=== PATIENT | female | born 1930 | race African-American/Black ===

== ENCOUNTER 2017-10-26 12:30 | Outpatient (CLI) | payer MEDICARE, MEDICAID | END 2017-10-26 12:31 | disposition home or self-care (01) | LOC: BICRAD 12:30 | PROVIDERS: ATTEND Family Medicine | DX: C91.10 Chronic lymphocytic leukemia of B-cell type not having achieved remission (principal); M25.559 Pain in unspecified hip; R29.6 Repeated falls | CPT/HCPCS: 71046; 72170 ==

== ENCOUNTER 2017-11-01 14:04 | Day surgery (SDC) | payer MEDICARE, MEDICAID ==
[2017-11-01] MEDS ORDERED: Epoetin 40,000 UNITS/ML VIAL ONE (14:11)
[2017-11-01 14:17] VITALS: BP 169/70; TEMP 97.8
[2017-11-01] MEDS ORDERED: Epoetin 40,000 UNITS/ML VIAL SC SCH (14:30)
== END 2017-11-01 14:18 | disposition home or self-care (01) ==
LOC: ONC/OP 14:04
PROVIDERS: ATTEND Internal Medicine Medical Oncology
DX: N18.9 Chronic kidney disease, unspecified (principal); D63.1 Anemia in chronic kidney disease; Z88.5 Allergy status to narcotic agent; Z88.8 Allergy status to other drugs, medicaments and biological substances
CPT/HCPCS: 96372; J0885

== ENCOUNTER 2017-11-08 14:16 | Day surgery (SDC) | payer MEDICARE, MEDICAID ==
[2017-11-08 14:31] VITALS: BP 164/72; TEMP 97.8
[2017-11-08] MEDS ORDERED: Epoetin 40,000 UNITS/ML VIAL SC SCH (14:45)
== END 2017-11-08 16:10 | disposition home or self-care (01) ==
LOC: ONC/OP 14:16
PROVIDERS: ATTEND Internal Medicine Medical Oncology
DX: N18.9 Chronic kidney disease, unspecified (principal); D63.1 Anemia in chronic kidney disease; Z88.5 Allergy status to narcotic agent; Z88.8 Allergy status to other drugs, medicaments and biological substances; Z79.82 Long term (current) use of aspirin; Z79.899 Other long term (current) drug therapy
CPT/HCPCS: 96372; J0885

== ENCOUNTER 2017-11-16 12:02 | Day surgery (SDC) | payer MEDICARE, MEDICAID ==
[2017-11-16] MEDS ORDERED: Epoetin 40,000 UNITS/ML VIAL SC SCH (12:15)
[2017-11-16 12:17] VITALS: BP 190/84; TEMP 99.1
== END 2017-11-16 12:29 | disposition home or self-care (01) ==
LOC: ONC/OP 12:02
PROVIDERS: ATTEND Internal Medicine Medical Oncology
DX: I12.9 Hypertensive chronic kidney disease with stage 1 through stage 4 chronic kidney disease, or unspecified chronic kidney disease (principal); N18.9 Chronic kidney disease, unspecified; D63.1 Anemia in chronic kidney disease; E78.5 Hyperlipidemia, unspecified; Z88.5 Allergy status to narcotic agent; Z88.8 Allergy status to other drugs, medicaments and biological substances
CPT/HCPCS: 96372; J0885

== ENCOUNTER 2017-11-23 11:59 | Day surgery (SDC) | payer MEDICARE, MEDICAID ==
[2017-11-23] MEDS ORDERED: Epoetin 40,000 UNITS/ML VIAL ONE (12:08)
[2017-11-23 12:20] VITALS: BP 196/81; TEMP 98.1
== END 2017-11-23 12:15 | disposition home or self-care (01) ==
LOC: ONC/OP 11:59
PROVIDERS: ATTEND Internal Medicine Medical Oncology
DX: I12.9 Hypertensive chronic kidney disease with stage 1 through stage 4 chronic kidney disease, or unspecified chronic kidney disease (principal); N18.9 Chronic kidney disease, unspecified; D63.1 Anemia in chronic kidney disease; E78.5 Hyperlipidemia, unspecified; Z88.5 Allergy status to narcotic agent; Z88.8 Allergy status to other drugs, medicaments and biological substances; Z79.82 Long term (current) use of aspirin; Z79.899 Other long term (current) drug therapy
CPT/HCPCS: 96372; J0885

== ENCOUNTER 2018-01-02 13:51 | Day surgery (SDC) | payer MEDICARE, MEDICAID ==
[2018-01-02] MEDS ORDERED: Epoetin 40,000 UNITS/ML VIAL ONE (13:59)
[2018-01-02] MEDS ORDERED: Epoetin 40,000 UNITS/ML VIAL SC SCH (14:00)
[2018-01-02 14:51] VITALS: BP 182/77; TEMP 98.5
== END 2018-01-02 14:51 | disposition home or self-care (01) ==
LOC: ONC/OP 13:51
PROVIDERS: ATTEND Internal Medicine Medical Oncology
DX: I12.9 Hypertensive chronic kidney disease with stage 1 through stage 4 chronic kidney disease, or unspecified chronic kidney disease (principal); N18.9 Chronic kidney disease, unspecified; D63.1 Anemia in chronic kidney disease; D50.9 Iron deficiency anemia, unspecified; C91.10 Chronic lymphocytic leukemia of B-cell type not having achieved remission; E78.5 Hyperlipidemia, unspecified; F41.9 Anxiety disorder, unspecified; M19.90 Unspecified osteoarthritis, unspecified site; Z79.82 Long term (current) use of aspirin; Z79.899 Other long term (current) drug therapy; Z88.5 Allergy status to narcotic agent; Z88.8 Allergy status to other drugs, medicaments and biological substances
CPT/HCPCS: 96372; J0885

== ENCOUNTER 2018-01-16 14:07 | Day surgery (SDC) | payer MEDICARE, MEDICAID ==
[2018-01-16] MEDS ORDERED: Epoetin 40,000 UNITS/ML VIAL SC SCH (14:30)
[2018-01-16 16:16] VITALS: BP 144/66; TEMP 98.6
== END 2018-01-16 16:16 | disposition home or self-care (01) ==
LOC: ONC/OP 14:07
PROVIDERS: ATTEND Internal Medicine Medical Oncology
DX: I12.9 Hypertensive chronic kidney disease with stage 1 through stage 4 chronic kidney disease, or unspecified chronic kidney disease (principal); N18.9 Chronic kidney disease, unspecified; C91.10 Chronic lymphocytic leukemia of B-cell type not having achieved remission; D63.1 Anemia in chronic kidney disease; D50.9 Iron deficiency anemia, unspecified; E78.5 Hyperlipidemia, unspecified; Z79.82 Long term (current) use of aspirin; Z79.899 Other long term (current) drug therapy; Z91.19 Patient's noncompliance with other medical treatment and regimen
CPT/HCPCS: 96372; J0885

== ENCOUNTER 2018-01-29 14:03 | Day surgery (SDC) | payer MEDICARE, MEDICAID ==
[2018-01-29] MEDS ORDERED: Epoetin 40,000 UNITS/ML VIAL SC SCH (14:15)
[2018-01-29 14:19] VITALS: BP 153/70; TEMP 98.6
== END 2018-01-29 14:41 | disposition home or self-care (01) ==
LOC: ONC/OP 14:03
PROVIDERS: ATTEND Internal Medicine Medical Oncology
DX: I12.9 Hypertensive chronic kidney disease with stage 1 through stage 4 chronic kidney disease, or unspecified chronic kidney disease (principal); N18.9 Chronic kidney disease, unspecified; D63.1 Anemia in chronic kidney disease; C91.10 Chronic lymphocytic leukemia of B-cell type not having achieved remission; E78.5 Hyperlipidemia, unspecified; Z88.5 Allergy status to narcotic agent; Z88.8 Allergy status to other drugs, medicaments and biological substances; Z98.890 Other specified postprocedural states
CPT/HCPCS: 96372; J0885

== ENCOUNTER 2018-02-22 11:15 | Day surgery (SDC) | payer MEDICARE, MEDICAID ==
[2018-02-22] MEDS ORDERED: Epoetin 40,000 UNITS/ML VIAL SC SCH (11:30)
== END 2018-02-22 11:59 | disposition home or self-care (01) ==
LOC: ONC/OP 11:15
PROVIDERS: ATTEND Internal Medicine Medical Oncology
DX: N18.9 Chronic kidney disease, unspecified (principal); D63.1 Anemia in chronic kidney disease; Z88.5 Allergy status to narcotic agent; Z88.8 Allergy status to other drugs, medicaments and biological substances
CPT/HCPCS: 96372; J0885

== ENCOUNTER 2018-03-08 11:19 | Day surgery (SDC) | payer MEDICARE, MEDICAID ==
[2018-03-08] MEDS ORDERED: Epoetin 40,000 UNITS/ML VIAL SC SCH (11:30)
== END 2018-03-08 12:10 | disposition home or self-care (01) ==
LOC: ONC/OP 11:19
PROVIDERS: ATTEND Internal Medicine Medical Oncology
DX: N18.9 Chronic kidney disease, unspecified (principal); D63.1 Anemia in chronic kidney disease; Z88.5 Allergy status to narcotic agent
CPT/HCPCS: 96372; J0885

== ENCOUNTER 2018-04-05 11:16 | Day surgery (SDC) | payer MEDICARE, MEDICAID ==
[2018-04-05] MEDS ORDERED: Epoetin 40,000 UNITS/ML VIAL SC SCH (11:45)
[2018-04-05 12:23] VITALS: BP 106/70; TEMP 97.7
== END 2018-04-05 11:40 | disposition home or self-care (01) ==
LOC: ONC/OP 11:16
PROVIDERS: ATTEND Internal Medicine Medical Oncology
DX: N18.9 Chronic kidney disease, unspecified (principal); D63.1 Anemia in chronic kidney disease; Z88.5 Allergy status to narcotic agent
CPT/HCPCS: 96372; J0885

== ENCOUNTER 2018-04-19 11:50 | Day surgery (SDC) | payer MEDICARE, MEDICAID ==
[2018-04-19] MEDS ORDERED: Epoetin 40,000 UNITS/ML VIAL SC SCH (12:15)
== END 2018-04-19 16:55 | disposition home or self-care (01) ==
LOC: ONC/OP 11:50
PROVIDERS: ATTEND Internal Medicine Medical Oncology
DX: N18.9 Chronic kidney disease, unspecified (principal); D63.1 Anemia in chronic kidney disease; Z88.5 Allergy status to narcotic agent
CPT/HCPCS: 96372; J0885

== ENCOUNTER 2018-05-24 11:27 | Day surgery (SDC) | payer MEDICARE, MEDICAID ==
[2018-05-24] MEDS ORDERED: Epoetin 40,000 UNITS/ML VIAL ONE (11:34)
[2018-05-24] MEDS ORDERED: Epoetin 40,000 UNITS/ML VIAL SC SCH (11:45)
== END 2018-05-24 12:40 | disposition home or self-care (01) ==
LOC: ONC/OP 11:27
PROVIDERS: ATTEND Nurse Practitioner Acute Care
DX: N18.9 Chronic kidney disease, unspecified (principal); D63.1 Anemia in chronic kidney disease; Z79.52 Long term (current) use of systemic steroids; Z79.82 Long term (current) use of aspirin; Z79.899 Other long term (current) drug therapy; Z88.5 Allergy status to narcotic agent; Z88.8 Allergy status to other drugs, medicaments and biological substances
CPT/HCPCS: 96372; J0885

== ENCOUNTER 2018-06-07 10:56 | Day surgery (SDC) | payer MEDICARE, MEDICAID ==
[2018-06-07] MEDS ORDERED: Epoetin 40,000 UNITS/ML VIAL ONE (11:05)
[2018-06-07] MEDS ORDERED: Epoetin 40,000 UNITS/ML VIAL SC SCH (11:15)
[2018-06-07 11:21] VITALS: BP 159/70; TEMP 98.2
== END 2018-06-07 11:21 | disposition home or self-care (01) ==
LOC: ONC/OP 10:56
PROVIDERS: ATTEND Nurse Practitioner Acute Care
DX: N18.9 Chronic kidney disease, unspecified (principal); D63.1 Anemia in chronic kidney disease; Z88.5 Allergy status to narcotic agent
CPT/HCPCS: 96372; J0885

== ENCOUNTER 2018-07-19 10:37 | Day surgery (SDC) | payer MEDICARE, MEDICAID ==
[2018-07-19] MEDS ORDERED: Epoetin 40,000 UNITS/ML VIAL ONE (11:00)
[2018-07-19] MEDS ORDERED: Epoetin 40,000 UNITS/ML VIAL SC SCH (11:15)
[2018-07-19 11:50] VITALS: BP 164/69; TEMP 98
== END 2018-07-19 11:51 | disposition home or self-care (01) ==
LOC: ONC/OP 10:37
PROVIDERS: ATTEND Internal Medicine Medical Oncology
DX: N18.9 Chronic kidney disease, unspecified (principal); D63.1 Anemia in chronic kidney disease; Z88.5 Allergy status to narcotic agent
CPT/HCPCS: 96372; J0885

== ENCOUNTER 2018-08-09 11:16 | Day surgery (SDC) | payer MEDICARE, MEDICAID ==
[2018-08-09] MEDS ORDERED: Epoetin 40,000 UNITS/ML VIAL SC SCH (12:00)
[2018-08-09 12:08] VITALS: BP 181/74; TEMP 97.6
== END 2018-08-09 12:08 | disposition home or self-care (01) ==
LOC: ONC/OP 11:16
PROVIDERS: ATTEND Internal Medicine Medical Oncology
DX: N18.9 Chronic kidney disease, unspecified (principal); D63.1 Anemia in chronic kidney disease; Z88.5 Allergy status to narcotic agent; Z88.8 Allergy status to other drugs, medicaments and biological substances; Z79.82 Long term (current) use of aspirin; Z79.899 Other long term (current) drug therapy
CPT/HCPCS: 96372; J0885

== ENCOUNTER 2018-08-23 11:41 | Day surgery (SDC) | payer MEDICARE, MEDICAID ==
[2018-08-23] MEDS ORDERED: Epoetin 40,000 UNITS/ML VIAL SC SCH (12:00)
== END 2018-08-23 12:05 | disposition home or self-care (01) ==
LOC: ONC/OP 11:41
PROVIDERS: ATTEND Internal Medicine Medical Oncology
PROC: 3E033GC Introduction of Other Therapeutic Substance into Peripheral Vein, Percutaneous Approach (ICD-10-PCS; principal; 2018-08-23)
DX: N18.9 Chronic kidney disease, unspecified (principal); D63.1 Anemia in chronic kidney disease; Z88.5 Allergy status to narcotic agent; Z88.8 Allergy status to other drugs, medicaments and biological substances; Z79.52 Long term (current) use of systemic steroids; Z79.82 Long term (current) use of aspirin; Z79.899 Other long term (current) drug therapy
CPT/HCPCS: 96372; J0885

== ENCOUNTER 2018-09-27 11:13 | Day surgery (SDC) | payer MEDICARE, MEDICAID ==
[2018-09-27] MEDS ORDERED: Epoetin 40,000 UNITS/ML VIAL ONE (11:18)
[2018-09-27 11:21] VITALS: BP 181/76; TEMP 98.3
[2018-09-27] MEDS ORDERED: Epoetin 40,000 UNITS/ML VIAL SC SCH (11:30)
== END 2018-09-27 11:29 | disposition home or self-care (01) ==
LOC: ONC/OP 11:13
PROVIDERS: ATTEND Internal Medicine Hematology & Oncology
DX: N18.9 Chronic kidney disease, unspecified (principal); D63.1 Anemia in chronic kidney disease; Z79.82 Long term (current) use of aspirin; Z79.899 Other long term (current) drug therapy; Z88.5 Allergy status to narcotic agent; Z88.8 Allergy status to other drugs, medicaments and biological substances
CPT/HCPCS: 96372; J0885

== ENCOUNTER → 2018-10-25 | Day surgery (SDC) | payer MEDICARE, MEDICAID ==
[~2018-10-25] MED LIST: Epoetin 40,000 UNITS/ML VIAL ONE; Epoetin 40,000 UNITS/ML VIAL SC SCH
== END ==
LOC: ONC/OP 11:16
PROVIDERS: ATTEND Internal Medicine Hematology & Oncology
DX: I12.9 Hypertensive chronic kidney disease with stage 1 through stage 4 chronic kidney disease, or unspecified chronic kidney disease (principal); N18.9 Chronic kidney disease, unspecified; D63.1 Anemia in chronic kidney disease; C91.10 Chronic lymphocytic leukemia of B-cell type not having achieved remission; F41.9 Anxiety disorder, unspecified; M19.90 Unspecified osteoarthritis, unspecified site; Z88.5 Allergy status to narcotic agent; Z88.8 Allergy status to other drugs, medicaments and biological substances; Z79.82 Long term (current) use of aspirin; Z79.899 Other long term (current) drug therapy
CPT/HCPCS: 96372; J0885

== ENCOUNTER 2018-11-08 12:55 | Day surgery (SDC) | payer MEDICARE, MEDICAID ==
[2018-11-08 13:02] VITALS: TEMP 98.7
[2018-11-08] MEDS ORDERED: Epoetin 40,000 UNITS/ML VIAL SC SCH (13:15)
== END 2018-11-08 13:08 | disposition home or self-care (01) ==
LOC: ONC/OP 12:55
PROVIDERS: ATTEND Internal Medicine Hematology & Oncology
DX: N18.9 Chronic kidney disease, unspecified (principal); D63.1 Anemia in chronic kidney disease; Z88.5 Allergy status to narcotic agent; Z88.8 Allergy status to other drugs, medicaments and biological substances
CPT/HCPCS: 96372; J0885

== ENCOUNTER 2018-12-06 11:18 | Day surgery (SDC) | payer MEDICARE, MEDICAID ==
[2018-12-06] MEDS ORDERED: Epoetin 40,000 UNITS/ML VIAL SC SCH (11:30)
[2018-12-06 11:31] VITALS: BP 148/67; TEMP 98.6
== END 2018-12-06 12:54 | disposition home or self-care (01) ==
LOC: ONC/OP 11:18
PROVIDERS: ATTEND Internal Medicine Hematology & Oncology
DX: N18.9 Chronic kidney disease, unspecified (principal); D63.1 Anemia in chronic kidney disease; Z88.5 Allergy status to narcotic agent; Z88.8 Allergy status to other drugs, medicaments and biological substances; Z79.52 Long term (current) use of systemic steroids; Z79.82 Long term (current) use of aspirin; Z79.899 Other long term (current) drug therapy
CPT/HCPCS: 96372; J0885

== ENCOUNTER 2018-12-27 11:09 | Day surgery (SDC) | payer MEDICARE, MEDICAID ==
[2018-12-27] MEDS ORDERED: Epoetin 40,000 UNITS/ML VIAL ONE (11:15)
[2018-12-27] MEDS ORDERED: EPOETIN ALFA-EPBX (NON-ESRD) 40,000 UNIT/ML VIAL SC SCH (11:15)
[2018-12-27 12:02] VITALS: BP 122/65; TEMP 98.4
== END 2018-12-27 12:02 | disposition home or self-care (01) ==
LOC: ONC/OP 11:09
PROVIDERS: ATTEND Internal Medicine Hematology & Oncology
DX: N18.9 Chronic kidney disease, unspecified (principal); D63.1 Anemia in chronic kidney disease; Z88.5 Allergy status to narcotic agent; Z88.8 Allergy status to other drugs, medicaments and biological substances
CPT/HCPCS: 96372; J0885; Q5106

== ENCOUNTER 2019-01-17 11:06 | Day surgery (SDC) | payer MEDICARE, MEDICAID ==
[2019-01-17] MEDS ORDERED: Epoetin 40,000 UNITS/ML VIAL ONE (11:12)
[2019-01-17 11:26] VITALS: BP 140/101; TEMP 97.3
[2019-01-17] MEDS ORDERED: EPOETIN ALFA-EPBX (ESRD) 40,000 UNIT/ML VIAL SC SCH (11:30)
== END 2019-01-17 16:44 | disposition home or self-care (01) ==
LOC: ONC/OP 11:06
PROVIDERS: ATTEND Internal Medicine Hematology & Oncology
DX: N18.9 Chronic kidney disease, unspecified (principal); D63.1 Anemia in chronic kidney disease; Z88.5 Allergy status to narcotic agent
CPT/HCPCS: 96372; J0885

== ENCOUNTER 2019-02-07 10:42 | Day surgery (SDC) | payer MEDICARE, MEDICAID ==
[2019-02-07] MEDS ORDERED: EPOETIN ALFA-EPBX (NON-ESRD) 40,000 UNIT/ML VIAL ONE (10:56)
[2019-02-07 11:04] VITALS: BP 168/70; TEMP 97.6
[2019-02-07] MEDS ORDERED: EPOETIN ALFA-EPBX (ESRD) 40,000 UNIT/ML VIAL SC SCH (11:45)
== END 2019-02-07 11:37 | disposition home or self-care (01) ==
LOC: ONC/OP 10:42
PROVIDERS: ATTEND Nurse Practitioner Acute Care
DX: N18.9 Chronic kidney disease, unspecified (principal); D63.1 Anemia in chronic kidney disease; Z88.5 Allergy status to narcotic agent; Z88.8 Allergy status to other drugs, medicaments and biological substances
CPT/HCPCS: 96372; Q5106

== ENCOUNTER 2019-03-21 11:55 | Day surgery (SDC) | payer MEDICARE, MEDICAID ==
[2019-03-21] MEDS ORDERED: EPOETIN ALFA-EPBX (ESRD) 40,000 UNIT/ML VIAL ONE (12:04)
[2019-03-21] MEDS ORDERED: EPOETIN ALFA-EPBX (ESRD) 40,000 UNIT/ML VIAL SC SCH (12:15)
[2019-03-21 12:57] VITALS: BP 209/87; TEMP 98.2
== END 2019-03-21 15:38 | disposition home or self-care (01) ==
LOC: ONC/OP 11:55
PROVIDERS: ATTEND Internal Medicine Medical Oncology
DX: N18.9 Chronic kidney disease, unspecified (principal); D63.1 Anemia in chronic kidney disease; Z88.5 Allergy status to narcotic agent; Z88.8 Allergy status to other drugs, medicaments and biological substances
CPT/HCPCS: 96372; Q5105

== ENCOUNTER 2019-05-02 11:14 | Day surgery (SDC) | payer MEDICARE, MEDICAID ==
[2019-05-02] MEDS ORDERED: EPOETIN ALFA-EPBX (ESRD) 40,000 UNIT/ML VIAL SC SCH (12:00)
[2019-05-02 12:40] VITALS: BP 180/70
== END 2019-05-02 12:42 | disposition home or self-care (01) ==
LOC: ONC/OP 11:14
PROVIDERS: ATTEND Internal Medicine Medical Oncology
DX: N18.9 Chronic kidney disease, unspecified (principal); D63.1 Anemia in chronic kidney disease; Z88.5 Allergy status to narcotic agent; Z88.8 Allergy status to other drugs, medicaments and biological substances
CPT/HCPCS: 96372; Q5105

== ENCOUNTER 2019-05-23 11:31 | Day surgery (SDC) | payer MEDICARE, MEDICAID ==
[2019-05-23] MEDS ORDERED: EPOETIN ALFA-EPBX (NON-ESRD) 40,000 UNIT/ML VIAL ONE (11:35)
[2019-05-23] MEDS ORDERED: EPOETIN ALFA-EPBX (ESRD) 40,000 UNIT/ML VIAL SC SCH (12:00)
[2019-05-23 12:02] VITALS: BP 150/68; TEMP 98
== END 2019-05-23 12:04 | disposition home or self-care (01) ==
LOC: ONC/OP 11:31
PROVIDERS: ATTEND Internal Medicine Medical Oncology
DX: N18.9 Chronic kidney disease, unspecified (principal); D63.1 Anemia in chronic kidney disease; Z88.5 Allergy status to narcotic agent
CPT/HCPCS: 96372; Q5106

== ENCOUNTER 2019-06-13 10:55 | Day surgery (SDC) | payer MEDICARE, MEDICAID ==
[2019-06-13] MEDS ORDERED: EPOETIN ALFA-EPBX (NON-ESRD) 40,000 UNIT/ML VIAL ONE (11:27)
[2019-06-13] MEDS ORDERED: EPOETIN ALFA-EPBX (ESRD) 40,000 UNIT/ML VIAL SC SCH (11:45)
== END 2019-06-13 13:37 | disposition home or self-care (01) ==
LOC: ONC/OP 10:55
PROVIDERS: ATTEND Nurse Practitioner Acute Care
DX: N18.9 Chronic kidney disease, unspecified (principal); D63.1 Anemia in chronic kidney disease; Z88.5 Allergy status to narcotic agent; Z88.8 Allergy status to other drugs, medicaments and biological substances
CPT/HCPCS: 96372; Q5106

== ENCOUNTER 2019-07-25 11:36 | Day surgery (SDC) | payer MEDICARE, MEDICAID ==
[2019-07-25] MEDS ORDERED: EPOETIN ALFA-EPBX (ESRD) 40,000 UNIT/ML VIAL ONE (11:45)
[2019-07-25 11:58] VITALS: BP 190/75; TEMP 97.8
[2019-07-25] MEDS ORDERED: EPOETIN ALFA-EPBX (ESRD) 40,000 UNIT/ML VIAL SC SCH (12:00)
== END 2019-07-25 12:00 | disposition home or self-care (01) ==
LOC: ONC/OP 11:36
PROVIDERS: ATTEND Internal Medicine Medical Oncology
DX: N18.9 Chronic kidney disease, unspecified (principal); D63.1 Anemia in chronic kidney disease; Z88.5 Allergy status to narcotic agent; Z88.8 Allergy status to other drugs, medicaments and biological substances
CPT/HCPCS: 96372; J1642; Q5105

== ENCOUNTER 2019-08-15 11:29 | Day surgery (SDC) | payer MEDICARE, MEDICAID ==
[2019-08-15 11:35] VITALS: BP 116/60; TEMP 98
[2019-08-15] MEDS ORDERED: EPOETIN ALFA-EPBX (ESRD) 40,000 UNIT/ML VIAL ONE (11:35)
== END 2019-08-15 11:42 | disposition home or self-care (01) ==
LOC: ONC/OP 11:29
PROVIDERS: ATTEND Internal Medicine Medical Oncology
DX: D63.1 Anemia in chronic kidney disease (principal); Z88.5 Allergy status to narcotic agent; Z88.8 Allergy status to other drugs, medicaments and biological substances
CPT/HCPCS: 96372; Q5105

== ENCOUNTER 2019-09-05 11:12 | Day surgery (SDC) | payer MEDICARE, MEDICAID ==
[2019-09-05] MEDS ORDERED: EPOETIN ALFA-EPBX (ESRD) 40,000 UNIT/ML VIAL ONE (11:21)
[2019-09-05 11:45] VITALS: BP 171/68; TEMP 97.8
[2019-09-05] MEDS ORDERED: EPOETIN ALFA-EPBX (ESRD) 40,000 UNIT/ML VIAL SC SCH (11:45)
== END 2019-09-05 11:45 | disposition home or self-care (01) ==
LOC: ONC/OP 11:12
PROVIDERS: ATTEND Internal Medicine Medical Oncology
DX: N18.9 Chronic kidney disease, unspecified (principal); D63.1 Anemia in chronic kidney disease; Z88.5 Allergy status to narcotic agent; Z88.8 Allergy status to other drugs, medicaments and biological substances
CPT/HCPCS: 82728; 83540; 83550; 96372; Q5105

== ENCOUNTER 2019-09-26 11:15 | Day surgery (SDC) | payer MEDICARE, MEDICAID ==
[~2019-09-26 11:15] MED LIST changes: +EPOETIN ALFA-EPBX (ESRD) 40,000 UNIT/ML VIAL SC SCH; -Epoetin 40,000 UNITS/ML VIAL ONE; -Epoetin 40,000 UNITS/ML VIAL SC SCH
[2019-09-26] MEDS ORDERED: EPOETIN ALFA-EPBX (ESRD) 40,000 UNIT/ML VIAL ONE (11:34)
[2019-09-26 11:49] VITALS: BP 158/67; TEMP 97.7
== END 2019-09-26 13:16 | disposition home or self-care (01) ==
LOC: ONC/OP 11:15
PROVIDERS: ATTEND Internal Medicine Medical Oncology
DX: N18.9 Chronic kidney disease, unspecified (principal); D63.1 Anemia in chronic kidney disease; Z88.5 Allergy status to narcotic agent; Z88.8 Allergy status to other drugs, medicaments and biological substances
CPT/HCPCS: 96372; Q5105

== ENCOUNTER 2019-10-24 11:10 | Day surgery (SDC) | payer MEDICARE, MEDICAID ==
[2019-10-24] MEDS ORDERED: EPOETIN ALFA-EPBX (ESRD) 40,000 UNIT/ML VIAL ONE (11:15)
[2019-10-24 13:09] VITALS: BP 154/70
== END 2019-10-24 13:24 | disposition home or self-care (01) ==
LOC: ONC/OP 11:10
PROVIDERS: ATTEND Internal Medicine Medical Oncology
DX: N18.9 Chronic kidney disease, unspecified (principal); D63.1 Anemia in chronic kidney disease; Z88.5 Allergy status to narcotic agent; Z88.8 Allergy status to other drugs, medicaments and biological substances
CPT/HCPCS: 96372; Q5105

== ENCOUNTER → 2019-11-14 | Day surgery (SDC) | payer MEDICARE, MEDICAID ==
[~2019-11-14] MED LIST changes: +EPOETIN ALFA-EPBX (ESRD) 40,000 UNIT/ML VIAL ONE; -EPOETIN ALFA-EPBX (ESRD) 40,000 UNIT/ML VIAL SC SCH
[2019-11-14 11:20] VITALS: BP 150/73; TEMP 98.5
== END ==
LOC: ONC/OP 11:06
PROVIDERS: ATTEND Internal Medicine Medical Oncology
DX: N18.9 Chronic kidney disease, unspecified (principal); D63.1 Anemia in chronic kidney disease
CPT/HCPCS: 96372; Q5105

== ENCOUNTER 2019-12-26 10:49 | Day surgery (SDC) | payer MEDICARE, MEDICAID ==
[2019-12-26] MEDS ORDERED: EPOETIN ALFA-EPBX (ESRD) 40,000 UNIT/ML VIAL ONE (10:56)
[2019-12-26 11:08] VITALS: BP 172/82; TEMP 98.6
[2019-12-26] MEDS ORDERED: EPOETIN ALFA-EPBX (ESRD) 40,000 UNIT/ML VIAL SC SCH (11:15)
== END 2019-12-26 11:08 | disposition home or self-care (01) ==
LOC: ONC/OP 10:49
PROVIDERS: ATTEND Internal Medicine Medical Oncology
DX: N18.9 Chronic kidney disease, unspecified (principal); D63.1 Anemia in chronic kidney disease; Z88.5 Allergy status to narcotic agent; Z88.8 Allergy status to other drugs, medicaments and biological substances
CPT/HCPCS: 96372; Q5105

== ENCOUNTER 2020-01-16 10:59 | Day surgery (SDC) | payer MEDICARE, MEDICAID ==
[2020-01-16] MEDS ORDERED: EPOETIN ALFA-EPBX (ESRD) 40,000 UNIT/ML VIAL ONE (11:16)
[2020-01-16 11:19] VITALS: BP 134/63; TEMP 98.5
== END 2020-01-16 11:19 | disposition home or self-care (01) ==
LOC: ONC/OP 10:59
PROVIDERS: ATTEND Internal Medicine Medical Oncology
DX: N18.9 Chronic kidney disease, unspecified (principal); D63.1 Anemia in chronic kidney disease; Z88.5 Allergy status to narcotic agent; Z88.8 Allergy status to other drugs, medicaments and biological substances
CPT/HCPCS: 96372; Q5105

== ENCOUNTER 2020-02-06 10:43 | Day surgery (SDC) | payer MEDICARE, MEDICAID ==
[2020-02-06 10:53] VITALS: BP 173/75; TEMP 98.2
[2020-02-06] MEDS ORDERED: EPOETIN ALFA-EPBX (ESRD) 40,000 UNIT/ML VIAL ONE (10:55)
[2020-02-06] MEDS ORDERED: EPOETIN ALFA-EPBX (ESRD) 40,000 UNIT/ML VIAL SC SCH (11:00)
== END 2020-02-06 10:56 | disposition home or self-care (01) ==
LOC: ONC/OP 10:43
PROVIDERS: ATTEND Internal Medicine Medical Oncology
DX: N18.9 Chronic kidney disease, unspecified (principal); D63.1 Anemia in chronic kidney disease; Z88.5 Allergy status to narcotic agent; Z88.8 Allergy status to other drugs, medicaments and biological substances
CPT/HCPCS: 96372; Q5105

== ENCOUNTER 2020-03-19 10:41 | Day surgery (SDC) | payer MEDICARE, MEDICAID ==
[2020-03-19 10:54] VITALS: BP 144/62
[2020-03-19] MEDS ORDERED: EPOETIN ALFA-EPBX (ESRD) 40,000 UNIT/ML VIAL SC SCH (11:00)
== END 2020-03-19 10:54 | disposition home or self-care (01) ==
LOC: ONC/OP 10:41
PROVIDERS: ATTEND Internal Medicine Medical Oncology
DX: N18.9 Chronic kidney disease, unspecified (principal); D63.1 Anemia in chronic kidney disease; Z88.5 Allergy status to narcotic agent; Z88.8 Allergy status to other drugs, medicaments and biological substances
CPT/HCPCS: 96372; Q5105

== ENCOUNTER 2020-04-30 10:33 | Day surgery (SDC) | payer MEDICARE, MEDICAID ==
[2020-04-30] MEDS ORDERED: EPOETIN ALFA-EPBX (ESRD) 40,000 UNIT/ML VIAL SC SCH (10:45)
[2020-04-30] MEDS ORDERED: EPOETIN ALFA-EPBX (ESRD) 40,000 UNIT/ML VIAL ONE (10:47)
[2020-04-30 11:02] VITALS: BP 189/79
== END 2020-04-30 11:04 | disposition home or self-care (01) ==
LOC: ONC/OP 10:33
PROVIDERS: ATTEND Internal Medicine Medical Oncology
DX: N18.9 Chronic kidney disease, unspecified (principal); D63.1 Anemia in chronic kidney disease; Z88.5 Allergy status to narcotic agent; Z88.8 Allergy status to other drugs, medicaments and biological substances
CPT/HCPCS: 96372; Q5105

== ENCOUNTER 2020-05-21 12:20 | Day surgery (SDC) | payer MEDICARE, MEDICAID ==
[2020-05-21] MEDS ORDERED: EPOETIN ALFA-EPBX (ESRD) 40,000 UNIT/ML VIAL ONE (12:30)
[2020-05-21 12:33] VITALS: BP 171/74; TEMP 97.1
[2020-05-21] MEDS ORDERED: EPOETIN ALFA-EPBX (ESRD) 40,000 UNIT/ML VIAL SC SCH (12:45)
== END 2020-05-21 12:37 | disposition home or self-care (01) ==
LOC: ONC/OP 12:20
PROVIDERS: ATTEND Internal Medicine Medical Oncology
DX: N18.9 Chronic kidney disease, unspecified (principal); D63.1 Anemia in chronic kidney disease; Z88.5 Allergy status to narcotic agent; Z88.8 Allergy status to other drugs, medicaments and biological substances
CPT/HCPCS: 96372; Q5105

== ENCOUNTER 2020-05-28 14:59 | Outpatient (CLI) | payer MEDICARE, MEDICAID ==
[~2020-05-28 14:59] MED LIST changes: -EPOETIN ALFA-EPBX (ESRD) 40,000 UNIT/ML VIAL ONE; +Iopamidol-370 76% 500 ML 1 ML ONE
--- NOTE | 2020-05-28 16:21 | CT ---
EXAM: CT NECK SOFT TISSUE POST CONTRAST: HISTORY:Lymphadenopathy. Swelling 4 weeks ago. History of leukemia. COMPARISON:None CORRELATION:None FINDINGS: Brain parenchyma: No pathologic enhancement of the visualized brain parenchyma. Sinuses: Adequate aeration of the visualized paranasal sinuses and mastoid air cells. Orbits: Appropriate location of the ocular lens implants. Symmetric attenuation the optic nerves and ocular rectus muscles. Retrobulbar fat is preserved. Nasopharynx:Adequate aeration. No mucosal abnormality. Oral cavity:Aerodigestive tract is patent. No mucosal abnormality. Limited evaluation of the oral cav ity due to dental amalgam artifact. Midline fatty raphae of the tongue is preserved. Multiple dental caries and periapical lucencies are noted. Hypopharynx: There is mild mucosal pole is involving the posterior oral cavity/hypopharynx without a discrete lesion. There does appear to be mild narrowing of the airway. Epiglottis has a normal caliber. Preepiglottic fat is preserved.. Larynx: The supraglottic, glottic and subglottic larynx have appropriate enhancement and attenuation. No mucosal abnormality. Paraspinal muscles: Symmetric attenuation of the paraspinal muscles and symmetric attenuation of the sternocleidomastoid muscles.. Parotid and salivary glands: Symmetric fat attenuation of the parotid glands. Symmetric attenuation o f the submandibular glands. Thyroid gland: Unremarkable. Spine: There is severe loss of disc space height, osteophyte formation and endplate sclerosis involvi ng the mid to lower cervical spine. There is associated varying degrees of central canal stenosis and neural foramina the basis of degenerative change. Lymph nodes: At the level of the palpable marker along the posterior left aspect of the neck there is a peripherally enhancing centrally hypodense lesion measuring 1.8 x 1.9 cm. A necrotic, enlarged left level 5 lymph node is favored. No additional enlarged lymph nodes in the left neck or right neck . There is a mildly enlarged right supraclavicular lymph node measuring 1.7 x 0.9 cm. There does appear to be enlarged right paratracheal lymph node measuring 1.6 x 1.3 cm. Lung apices and upper mediastinum: No acute abnormality. IMPRESSION: 1. Enlarged necrotic left level 5 lymph node. Mildly enlarged right supraclavicular lymph node. The l eft level 5 lymph node is amenable to ultrasound-guided biopsy. 2. Mild mucosal fullness along the posterior oral cavity/hypopharynx. There does appear to be mild na rrowing of the airway. Direct visualization may be beneficial.
== END 2020-05-28 15:00 | disposition home or self-care (01) ==
LOC: BICCT 14:59
PROVIDERS: ATTEND Internal Medicine Medical Oncology
DX: M54.2 Cervicalgia (principal); R59.0 Localized enlarged lymph nodes; J39.2 Other diseases of pharynx
CPT/HCPCS: 70491; 82565; Q9967

== ENCOUNTER 2020-07-02 11:14 | Day surgery (SDC) | payer MEDICARE, MEDICAID ==
[2020-07-02 11:18] VITALS: BP 160/67; TEMP 97.9
[2020-07-02] MEDS ORDERED: EPOETIN ALFA-EPBX (ESRD) 40,000 UNIT/ML VIAL ONE (11:19)
== END 2020-07-02 11:21 | disposition home or self-care (01) ==
LOC: ONC/OP 11:14
PROVIDERS: ATTEND Internal Medicine Medical Oncology
DX: N18.9 Chronic kidney disease, unspecified (principal); D63.1 Anemia in chronic kidney disease; Z88.5 Allergy status to narcotic agent; Z88.8 Allergy status to other drugs, medicaments and biological substances
CPT/HCPCS: 96372; Q5105

== ENCOUNTER 2020-07-23 11:19 | Day surgery (SDC) | payer MEDICARE, MEDICAID ==
[2020-07-23] MEDS ORDERED: EPOETIN ALFA-EPBX (ESRD) 40,000 UNIT/ML VIAL ONE (11:22)
[2020-07-23 13:12] VITALS: BP 164/67; TEMP 98.7
== END 2020-07-23 13:38 | disposition home or self-care (01) ==
LOC: ONC/OP 11:19
PROVIDERS: ATTEND Internal Medicine Medical Oncology
DX: N18.9 Chronic kidney disease, unspecified (principal); D63.1 Anemia in chronic kidney disease; C91.10 Chronic lymphocytic leukemia of B-cell type not having achieved remission
CPT/HCPCS: 82728; 96372; Q5105

== ENCOUNTER 2020-08-02 14:15 | Outpatient (CLI) | payer MEDICARE, MEDICAID ==
--- NOTE | 2020-08-02 15:56 | CT ---
CT neck soft tissues noncontrast: 08/02/2020 HISTORY: 89-year-old female with R 59.9 swollen tender left cervical lymph node and M 54.2 neck tenderness COMPARISON: 05/28/2020 TECHNIQUE: Because of low GFR of 33, no IV contrast was administered. FINDINGS: The previously demonstrated necrotic 2.8 x 1.8 x 1.9 cm left level Va, has decreased to current dimen sions of 2 x 1.3 x 1.2 cm. Central density 30 Hounsfield units. There is a cluster of mildly and moderately enlarged right level Vb supraclavicular lymph nodes. The largest of these previously measured 1.7 x 0.9 x 1 cm. Currently measures 1.9 x 1 x 1 cm, not significantly changed. Lower in the mediastinum, the right paratracheal noncalcified enlarged lymph node anterior to the [place] of the right mainstem bronchus, is difficult to measure without IV contrast. Estimated to be approximately 2 x 2 x 3 cm Bilaterally symmetrical enlargement of palatine tonsils unchanged. Enlargement of lingual tonsil asymmetrically on the right side crossing the midline slightly to the l eft, effacing the right side of the vallecula, appears slightly larger now than before. IMPRESSION: 1.) Interval decrease in size of the necrotic left level 5A cervical lymph node. 2) the cluster of enlarged right level 5B supraclavicular lymph nodes, including the dominant 1.9 cm supraclavicular node, is unchanged. 3) right paratracheal mediastinal enlarged lymph node.
--- NOTE | 2020-08-02 16:41 | CT ---
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 Follow-up. COMPARISON: No prior chest CT. Prior CT abdomen 04/17/2012. Prior neck CT of 05/28/2020. FINDINGS: Because of low GFR of 33, no IV contrast was given. Lungs are essentially clear. No pleural effusion or pneumothorax. Right paratracheal enlarged mediastinal lymph node anterior to the right mainstem bronchus is difficu lt to measure without IV contrast, but it is approximately 2 x 2 x 3 cm, probably not significantly changed compared to 05/28/[address] No other significant enlarged mediastinal or axillary lymphadenopathy. Again noted is the large number of small, moderate size, and moderately large hepatic cysts. Some hav e decreased in size since prior CT, while others have increased in size. One of the largest in the right lobe straddling hepatic segments 5 and 8, currently measures 6 x 4.5 x 5 cm. The largest in the left lobe is 4.6 x 4.8 x 5.6 cm in hepatic segment 3. There are multiple dystrophic calcifications in linear rays around some of the cysts, and these have increased since prior CT. Within the limitations of a noncontrast scan, no major pathology identified involving spleen, adrenal s, pancreas, bilateral kidneys, abdominal aorta. No small bowel dilation. Visualized portions of the colon demonstrate no gross abnormality. Normal appendix. No evidence of retroperitoneal, mesenteric, or reyna hepatis lymphadenopathy. IMPRESSION: 1.) Polycystic liver disease. 2) pathologically enlarged right mediastinal lymph node. 3) no lymphadenopathy visualized in the abdominal cavity
== END 2020-08-02 14:16 | disposition home or self-care (01) ==
LOC: BICCT 14:15
PROVIDERS: ATTEND Internal Medicine Medical Oncology
DX: C91.10 Chronic lymphocytic leukemia of B-cell type not having achieved remission (principal); Q44.6 Cystic disease of liver; R59.0 Localized enlarged lymph nodes
CPT/HCPCS: 70490; 71250; 74150; 82565

== ENCOUNTER 2020-08-13 11:48 | Day surgery (SDC) | payer MEDICARE, MEDICAID ==
[2020-08-13] MEDS ORDERED: EPOETIN ALFA-EPBX (ESRD) 40,000 UNIT/ML VIAL ONE (11:54)
[2020-08-13 12:19] VITALS: BP 158/71; TEMP 98.5
== END 2020-08-13 13:21 | disposition home or self-care (01) ==
LOC: ONC/OP 11:48
PROVIDERS: ATTEND Internal Medicine Medical Oncology
DX: N18.9 Chronic kidney disease, unspecified (principal); D63.1 Anemia in chronic kidney disease; C91.10 Chronic lymphocytic leukemia of B-cell type not having achieved remission; Z88.5 Allergy status to narcotic agent; Z88.8 Allergy status to other drugs, medicaments and biological substances
CPT/HCPCS: 96372; Q5105

== ENCOUNTER 2020-09-10 11:52 | Day surgery (SDC) | payer MEDICARE, MEDICAID ==
[2020-09-10] MEDS ORDERED: EPOETIN ALFA-EPBX (ESRD) 40,000 UNIT/ML VIAL ONE (11:56)
== END 2020-09-10 12:07 | disposition home or self-care (01) ==
LOC: ONC/OP 11:52
PROVIDERS: ATTEND Internal Medicine Medical Oncology
DX: N18.9 Chronic kidney disease, unspecified (principal); D63.1 Anemia in chronic kidney disease; C91.10 Chronic lymphocytic leukemia of B-cell type not having achieved remission
CPT/HCPCS: 96372; Q5105

== ENCOUNTER 2020-10-01 11:42 | Day surgery (SDC) | payer MEDICARE, MEDICAID ==
[2020-10-01] MEDS ORDERED: EPOETIN ALFA-EPBX (ESRD) 40,000 UNIT/ML VIAL ONE (11:48)
[2020-10-01] MEDS ORDERED: EPOETIN ALFA-EPBX (ESRD) 40,000 UNIT/ML VIAL SC SCH (12:00)
[2020-10-01 12:06] VITALS: BP 141/90; TEMP 98
[2020-10-01] MEDS ORDERED: FLU VACC QS2020-21(65YR UP)/PF 240 MCG/0.7 ML SYRINGE IM ONE (12:15)
== END 2020-10-01 12:07 | disposition home or self-care (01) ==
LOC: ONC/OP 11:42
PROVIDERS: ATTEND Internal Medicine Medical Oncology
DX: N18.9 Chronic kidney disease, unspecified (principal); D63.1 Anemia in chronic kidney disease; C91.10 Chronic lymphocytic leukemia of B-cell type not having achieved remission; Z88.5 Allergy status to narcotic agent; Z88.8 Allergy status to other drugs, medicaments and biological substances
CPT/HCPCS: 36415; 82728; 83540; 83550; 96372; Q5105

== ENCOUNTER 2020-10-25 12:19 | Day surgery (SDC) | payer MEDICARE, MEDICAID ==
[2020-10-25] MEDS ORDERED: EPOETIN ALFA-EPBX (ESRD) 40,000 UNIT/ML VIAL ONE (12:35)
[2020-10-25 12:42] VITALS: BP 181/75; TEMP 97.9
== END 2020-10-25 12:47 | disposition home or self-care (01) ==
LOC: ONC/OP 12:19
PROVIDERS: ATTEND Internal Medicine Medical Oncology
DX: N18.9 Chronic kidney disease, unspecified (principal); D63.1 Anemia in chronic kidney disease; C91.10 Chronic lymphocytic leukemia of B-cell type not having achieved remission; Z88.5 Allergy status to narcotic agent; Z88.8 Allergy status to other drugs, medicaments and biological substances
CPT/HCPCS: 96372; Q5105

== ENCOUNTER 2020-11-12 11:35 | Day surgery (SDC) | payer MEDICARE, MEDICAID ==
[2020-11-12] MEDS ORDERED: EPOETIN ALFA-EPBX (ESRD) 40,000 UNIT/ML VIAL ONE (12:35)
[2020-11-12 14:06] VITALS: BP 187/79; TEMP 98.3
[2020-11-12] MEDS ORDERED: EPOETIN ALFA-EPBX (ESRD) 40,000 UNIT/ML VIAL SC SCH (14:15)
== END 2020-11-12 14:08 | disposition home or self-care (01) ==
LOC: ONC/OP 11:35
PROVIDERS: ATTEND Internal Medicine Medical Oncology
DX: N18.9 Chronic kidney disease, unspecified (principal); D63.1 Anemia in chronic kidney disease; C91.10 Chronic lymphocytic leukemia of B-cell type not having achieved remission; Z88.5 Allergy status to narcotic agent; Z88.8 Allergy status to other drugs, medicaments and biological substances
CPT/HCPCS: 96372; Q5105

== ENCOUNTER 2020-12-24 11:18 | Day surgery (SDC) | payer MEDICARE, MEDICAID ==
[2020-12-24] MEDS ORDERED: EPOETIN ALFA-EPBX (ESRD) 40,000 UNIT/ML VIAL ONE (11:21)
[2020-12-24] MEDS ORDERED: EPOETIN ALFA-EPBX (NON-ESRD) 40,000 UNIT/ML VIAL SC SCH (12:30)
[2020-12-24 12:51] VITALS: BP 143/67; TEMP 98.1
== END 2020-12-24 12:51 | disposition home or self-care (01) ==
LOC: ONC/OP 11:18
PROVIDERS: ATTEND Internal Medicine Medical Oncology
DX: N18.9 Chronic kidney disease, unspecified (principal); D63.1 Anemia in chronic kidney disease; C91.10 Chronic lymphocytic leukemia of B-cell type not having achieved remission; Z88.5 Allergy status to narcotic agent; Z88.8 Allergy status to other drugs, medicaments and biological substances
CPT/HCPCS: 96372; Q5105

== ENCOUNTER 2021-01-14 13:32 | Day surgery (SDC) | payer MEDICARE, MEDICAID ==
[2021-01-14] MEDS ORDERED: EPOETIN ALFA-EPBX (ESRD) 40,000 UNIT/ML VIAL ONE (13:55)
[2021-01-14] MEDS ORDERED: EPOETIN ALFA-EPBX (ESRD) 40,000 UNIT/ML VIAL SC SCH (14:15)
[2021-01-14 14:27] VITALS: BP 137/76
== END 2021-01-14 14:28 | disposition home or self-care (01) ==
LOC: ONC/OP 13:32
PROVIDERS: ATTEND Internal Medicine Medical Oncology
DX: N18.9 Chronic kidney disease, unspecified (principal); D63.1 Anemia in chronic kidney disease; C91.10 Chronic lymphocytic leukemia of B-cell type not having achieved remission
CPT/HCPCS: 96372; Q5105

== ENCOUNTER 2021-02-01 13:39 | Outpatient (CLI) | payer MEDICARE, MEDICAID | END 2021-02-01 13:40 | disposition home or self-care (01) | LOC: BICCT 13:39 | PROVIDERS: ATTEND Internal Medicine Medical Oncology | DX: C91.10 Chronic lymphocytic leukemia of B-cell type not having achieved remission (principal); N18.9 Chronic kidney disease, unspecified; D63.1 Anemia in chronic kidney disease; R59.0 Localized enlarged lymph nodes | CPT/HCPCS: 70491; 71260; 74160; 82565; Q9967 ==

== ENCOUNTER 2021-02-04 11:55 | Day surgery (SDC) | payer MEDICARE, MEDICAID ==
[2021-02-04] MEDS ORDERED: EPOETIN ALFA-EPBX (ESRD) 40,000 UNIT/ML VIAL ONE (11:57)
[2021-02-04] MEDS ORDERED: EPOETIN ALFA-EPBX (ESRD) 40,000 UNIT/ML VIAL SC SCH (12:45)
[2021-02-04 13:08] VITALS: BP 135/60; TEMP 97.8
== END 2021-02-04 12:26 | disposition home or self-care (01) ==
LOC: ONC/OP 11:55
PROVIDERS: ATTEND Internal Medicine Medical Oncology
DX: N18.9 Chronic kidney disease, unspecified (principal); D63.1 Anemia in chronic kidney disease; C91.10 Chronic lymphocytic leukemia of B-cell type not having achieved remission; Z88.5 Allergy status to narcotic agent; Z88.8 Allergy status to other drugs, medicaments and biological substances
CPT/HCPCS: 36415; 82728; 83540; 83550; 96372; Q5105

== ENCOUNTER 2021-02-08 10:01 | Outpatient (CLI) | payer MEDICARE, MEDICAID ==
[2021-02-08 19:10] LABS: SARS-CoV-2 PCR by NAA Not Detected (NotDetected)
== END 2021-02-08 10:02 | disposition home or self-care (01) ==
LOC: LABBT 10:01
PROVIDERS: ATTEND Internal Medicine Medical Oncology
DX: Z01.812 Encounter for preprocedural laboratory examination (principal); C91.10 Chronic lymphocytic leukemia of B-cell type not having achieved remission; D63.1 Anemia in chronic kidney disease; Z20.822 Contact with and (suspected) exposure to COVID-19
CPT/HCPCS: U0003; U0005

== ENCOUNTER 2021-02-18 12:10 | Day surgery (SDC) | payer MEDICARE, MEDICAID ==
[2021-02-18] MEDS ORDERED: EPOETIN ALFA-EPBX (ESRD) 40,000 UNIT/ML VIAL ONE (12:17)
[2021-02-18 12:38] VITALS: BP 144/61; TEMP 98.8
== END 2021-02-18 12:46 | disposition home or self-care (01) ==
LOC: ONC/OP 12:10
PROVIDERS: ATTEND Internal Medicine Medical Oncology
DX: N18.9 Chronic kidney disease, unspecified (principal); D63.1 Anemia in chronic kidney disease; C91.10 Chronic lymphocytic leukemia of B-cell type not having achieved remission; Z88.5 Allergy status to narcotic agent; Z88.8 Allergy status to other drugs, medicaments and biological substances
CPT/HCPCS: 96372; Q5105

== ENCOUNTER 2021-03-04 08:48 | Day surgery (SDC) | payer MEDICARE, MEDICAID ==
[2021-03-02 12:44] VITALS: BMI 28.5
[2021-03-04 09:00] LABS: INR-International Normal Ratio 1.2; PTT 31.5 sec (22.9-36.1); Prothrombin Time 15.4 sec (12.0-14.7)
[2021-03-04 11:36] VITALS: BP 139/63; TEMP 99.7
== END 2021-03-04 13:00 | disposition home or self-care (01) ==
LOC: CT 08:48
PROVIDERS: ATTEND Internal Medicine Medical Oncology
PROC: 0FB23ZX Excision of Left Lobe Liver, Percutaneous Approach, Diagnostic (ICD-10-PCS; principal; 2021-03-04)
DX: C83.39 Diffuse large B-cell lymphoma, extranodal and solid organ sites (principal); I12.9 Hypertensive chronic kidney disease with stage 1 through stage 4 chronic kidney disease, or unspecified chronic kidney disease; N18.9 Chronic kidney disease, unspecified; D63.1 Anemia in chronic kidney disease; D50.9 Iron deficiency anemia, unspecified; E78.5 Hyperlipidemia, unspecified; M19.90 Unspecified osteoarthritis, unspecified site; Z87.891 Personal history of nicotine dependence; Z79.82 Long term (current) use of aspirin; Z79.899 Other long term (current) drug therapy; Z88.5 Allergy status to narcotic agent; Z88.8 Allergy status to other drugs, medicaments and biological substances
CPT/HCPCS: 47000; 77012; 85610; 85730; 88184; 88307; 88333; 88341; 88342; 88360; 88365